=== PATIENT | male | born 1980 | race Caucasian/White ===

== ENCOUNTER → 2024-07-21 | Outpatient (CLI) | payer OTHER ==
[~2024-07-21] MED LIST: ALBU90I INH; AZIT250 PO; BUPRENORPHINE HC8 MG SL; BUSP10 PO; CYCL10 PO; IBUP800 PO; METPRE4DP PO; Norco 10-325 T1 EACH PO; Norco 5-325 Ta1 EACH PO; OXYACE5T PO; PARO10 PO; PROACE100 PO; Prednisone20 MG PO; TRAZ50 PO
[2024-07-21 12:03] LABS: Thyroid Stimulating Hormone 3.69 uIU/mL (0.360-4.800); Thyroxine (T4) 7.4 ug/dL (4.5-12.1)
== END ==
LOC: LAB 09:09 → LAB SHORT 09:09
PROVIDERS: Nurse Practitioner Family
DX: E03.9 Hypothyroidism, unspecified (principal)
CPT/HCPCS: 84436; 84443